=== PATIENT | female | born 1990 | race Caucasian/White ===

== ENCOUNTER 2023-07-24 12:40 | Inpatient (IN) | payer BC ==
[~2023-07-24] VITALS: Ht 157.5 cm; Wt 85.5 kg
[2023-07-24 15:18] VITALS: BP 126/78; PULSE 94; RESP 16; TEMP 98.2; O2SAT 97
[2023-07-24] MEDS ORDERED: mag hydrox/Alum hydrox/simeth 30ml oral suspension PO PRN (15:30)
[2023-07-24] MEDS ORDERED: acetaminophen 325mg tablet PO PRN ×2 (15:30)
[2023-07-24] MEDS ORDERED: magnesium hydroxide 30ml (MOM) UD suspension PO PRN (15:30)
[2023-07-24 16:38] VITALS: RESP 16; O2SAT 97
[2023-07-24] MEDS ORDERED: SERT-434 PO (17:41)
[2023-07-24] MEDS ORDERED: ALPR0.255 PO (17:41)
[2023-07-24] MEDS ORDERED: SERT-433 PO (17:41)
[2023-07-24 19:30] VITALS: BP 108/65; PULSE 63; RESP 16; TEMP 97.2; O2SAT 100
[2023-07-24] MEDS ORDERED: ALPRAZolam 0.25mg tablet PO PRN (19:40)
[2023-07-24] MEDS ORDERED: diphenhydrAMINE 25mg capsule PO ONE (21:20)
[2023-07-24 22:38] VITALS: BP 108/65; PULSE 63; RESP 16; TEMP 97.2; O2SAT 100
[2023-07-25 07:00] VITALS: RESP 16; O2SAT 99
[2023-07-25 08:00] VITALS: BP 117/70; PULSE 78; RESP 12; TEMP 98.2; O2SAT 99
[2023-07-25] MEDS ORDERED: non-formulary drug (Sertraline HCl 2 TAB) PO SCH (08:00)
[2023-07-25] MEDS ORDERED: sertraline 50mg tablet PO SCH (08:00)
[2023-07-25 11:07] LABS: THYROID STIMULATING HORMONE 1.59 ulU/ml (0.34-4.50)
[2023-07-25 12:21] LABS: HEMOGLOBIN A1C 4.8 % (4.5-6.2)
== END 2023-07-25 17:50 | disposition home or self-care (01) | DRG 885 ==
LOC: ADULT MH 12:40
PROVIDERS: ADMIT Psychiatry & Neurology Psychiatry; ATTEND Psychiatry & Neurology Psychiatry
DX: F33.1 Major depressive disorder, recurrent, moderate (principal); R45.851 Suicidal ideations; I10 Essential (primary) hypertension; F41.9 Anxiety disorder, unspecified; E66.9 Obesity, unspecified; Z79.899 Other long term (current) drug therapy; Z68.34 Body mass index [BMI] 34.0-34.9, adult; Z91.040 Latex allergy status; Z82.49 Family history of ischemic heart disease and other diseases of the circulatory system
CPT/HCPCS: 36415; 83036; 84443; 87081; 99285; Q0163